=== PATIENT | male | born 2000 | race Caucasian/White ===

== ENCOUNTER 2022-10-14 06:13 | Emergency (ER) | payer MEDICAID, SELFPAY ==
[2022-10-14 06:15] VITALS: BP 142/91; PULSE 98; RESP 18; TEMP 36.4; O2SAT 98; BMI 19.8
--- NOTE | 2022-10-14 06:15 | W.ED.SEIZURE ---
HPI - Seizure General: Chief Complaint: Seizure Stated Complaint: seizure like activity Time Seen by Provider: 10/14/22 06:14 History of Present Illness: HPI Narrative: 22-year-old patient presented to the emergency department for evaluation of seizure. Reports being in bed and feeling like a seizure was can happen and then waking up in the ambulance. No tongue biting but did have loss of urinary continence. Possible triggers including drug use and not taking antiepileptic medications. Has had increase in headaches with history of brain AVM treated with radiotherapy. Also notes generalized malaise. Slowly returning to baseline. Still feels generally unwell. No other specific changes in health, exacerbating, or alleviating factors identified. Seizure History: Yes Place: Home Possible Precipitating Event: drug use and medication (no taking) Review of Systems General: Reports: 10 or more systems reviewed and unremarkable except in HPI and below PFSH ED PFSH: Medical History (Updated 10/22/22 @ 00:01 by MARIO Cristina) History of arteriovenous malformation (AVM) Seizures Surgical History (Updated 10/14/22 @ 06:37 by Josiah Neff MD) History of brain surgery Physical Exam Const: COMMON NORMALS: patient oriented x3 and alert GENERAL APPEARANCE: cooperative and well developed HENMT: COMMON NORMALS: normocephalic and atraumatic HEAD & SCALP: normocephalic and atraumatic Eye: COMMON NORMALS: conjunctivae normal CONJUNCTIVA: Yes conjunctivae normal SCLERA: sclerae normal Neck/C-Spine: COMMON NORMALS: supple GENERAL: Yes trachea midline Resp: COMMON NORMALS: normal respiratory effort and clear to auscultation bilaterally EFFORT & INSPECTION: Yes able to speak in complete sentences AUSCULTATION: clear to auscultation bilaterally Cardio: COMMON NORMALS: regular rate and regular rhythm RATE: regular rate RHYTHM: regular rhythm GI: COMMON NORMALS: Soft to palpation PALPATION: Yes Soft to palpation and No Tenderness to palpation present (GI) Extremity: GENERAL: Yes normal exam except as noted and No edema Neuro: COMMON NORMALS: patient oriented x3, CN's II-XII intact bilaterally, moves all extremities, no focal motor deficits and no sensory deficits noted SENSORIUM/ORIENTATION: Yes alert and No Orientation impaired Psych: COMMON NORMALS: mental status grossly normal and Normal thought process present THOUGHT PROCESS: Normal thought process present Course Vital Signs: Vital signs: Vital Signs Temperature 97.6 F 08/02/23 06:15 Pulse Rate 69 10/14/22 08:18 Respiratory Rate 19 H 10/14/22 07:36 Blood Pressure 121/68 10/14/22 08:18 Pulse Oximetry 99 10/14/22 08:18 Oxygen Delivery Me thod Room Air 10/14/22 07:36 MDM - Seizure MDM Narrative Medical decision making narrative: 22-year-old male with history of seizures presenting with seizure activity in the context of not taking medications and drug use. Fatigued appearing on exam however nontoxic. No focal neurologic deficits. No meningismus. EKG demonstrates sinus rhythm with normal axis and intervals, nonspecific ST segment abnormalities, no STEMI. Labs with hemoconcentration and metabolic derangement which is mild and consistent with reported history. Possible UTI. Head CT negative for acute pathology. Incidental findings noted. Patient improved with ED treatment of IV fluids, also given ceftriaxone, antiemetic, Trileptal dose. Patient is on his way back home and will be able to get his medications for the rest of today and subsequently. He feels significantly improved and feels back to baseline. Standard seizure precautions reinforced. The results of ED evaluation were discussed with the patient including prescriptions and/or symptomatic cares (if applicable) including appropriate and responsible use, followup plan, and return precautions. The patient verbalized understanding and felt safe for discharge. Medical Records Attestation: I reviewed the patient's medical records. Lab Data Attestation: I reviewed the patient's lab results. 10/14/22 Unknown 10/14/22 Unknown Labs: Radiology Impressions Head CT 10/14/22 06:30 IMPRESSION: 1. No acute intracranial hemorrhage or mass effect. 2. No definite acute infarct by CT, see above. 3. Other findings discussed above. Laboratory Results WBC 8.1 10^3/uL (4.5-13.0) 10/14/22 Unknown RBC 5.99 10^6/uL (4.1-5.3) H 10/14/22 Unknown Hgb 18.3 g/dL (11.7-16.6) H 10/14/22 Unknown Hct 56.0 % (42.0-52.0) H 10/14/22 Unknown MCV 93.5 fl (80-94) 10/14/22 Unknown MCH 30.6 pg (28.0-34.0) 10/14/22 Unknown MCHC 32.7 g/dL (30.0-36.0) 10/14/22 Unknown RDW 12.2 % (12.1-15.1) 10/14/22 Unknown Plt Count 279 10^3/cmm (130-400) 10/14/22 Unknown MPV 10.0 fL (7.4-10.4) 10/14/22 Unknown Neut % (Auto) 57.3 % 10/14/22 Unknown Lymph % (Auto) 30.8 % 10/14/22 Unknown [place] % (Auto) 9.3 % 10/14/22 Unknown Eos % (Auto) 1.7 % 10/14/22 Unknown Baso % (Auto) 0.5 % 10/14/22 Unknown Neut # (Auto) 4.66 10^3/uL (1.8-8.0) 10/14/22 Unknown Lymph # (Auto) 2.5 10^3/uL (1.5-6.5) 10/14/22 Unknown [place] # (Auto) 0.8 10^3/uL (0.2-0.9) 10/14/22 Unknown Eos # (Auto) 0.1 10^3/uL (0.0-0.8) 10/14/22 Unknown Baso # (Auto) 0.0 10^3/uL (0.0-0.1) 10/14/22 Unknown Nucleated RBC % (auto) 0 % 10/14/22 Unknown Nucleated RBCs # 0.0 /100WBC 10/14/22 Unknown Sodium 138 mmol/L (136-145) 10/14/22 Unknown Potassium 4.1 mmol/L (3.5-5.1) 10/14/22 Unknown Chloride 97 mmol/L (98-107) L 10/14/22 Unknown Carbon Dioxide 17 mmol/L (22-29) L 10/14/22 Unknown Anion Gap 28.1 (5-19) H 10/14/22 Unknown BUN 13 mg/dL (6-20) 10/14/22 Unknown Creatinine 1.2 mg/dL (0.7-1.2) 10/14/22 Unknown GFR Calculation 77.2 mL/min (90-130) L 10/14/22 Unknown Glucose 121 mg/dL (65-115) H 10/14/22 Unknown Calculated Osmolality 287 mOsm/kg (285-295) 10/14/22 Unknown Calcium 10.6 mg/dL (8.5-10.5) H 10/14/22 Unknown Total Bilirubin 1.6 mg/dL (0.15-1.2) H 10/14/22 Unknown AST 12 U/L (0-40) 10/14/22 Unknown ALT 13 U/L (0-41) 10/14/22 Unknown Alkaline Phosphatase 120 U/L (40-130) 10/14/22 Unknown Total Protein 8.7 g/dL (6.6-8.7) 10/14/22 Unknown Albumin 5.4 g/dL (3.5-5.2) H 10/14/22 Unknown Globulin 3.3 g/dL (1.3-4.6) 10/14/22 Unknown Urine Color Yellow (Yellow) 10/14/22 06:43 Urine Appearance Clear (CLEAR) 10/14/22 06:43 Urine pH 5 (5-7) 10/14/22 06:43 Ur Specific [place] 1.025 (1.005-1.030) 10/14/22 06:43 Urine Protein 1+ (Negative) H 10/14/22 06:43 Urine Glucose (UA) Norm (Normal) 10/14/22 06:43 Urine Ketones 1+ (Negative) H 10/14/22 06:43 Urine Blood 2+ (Negative) H 10/14/22 06:43 Urine Nitrate Negative (Negative) 10/14/22 06:43 Urine Bilirubin Neg (Negative) 10/14/22 06:43 Urine Urobilinogen 1 mg/dL (Negative) H 10/14/22 06:43 Ur Leukocyte Esterase Trace (Negative) H 10/14/22 06:43 Urine RBC 5-10 /hpf (0-2) H 10/14/22 06:43 Urine WBC 10-15 /hpf (0-5) H 10/14/22 06:43 Ur Squamous Epith Cells 0-4 /hpf (0-5) H 10/14/22 06:43 Amorphous Sediment Not Reportable 10/14/22 06:43 Urine Bacteria Trace /hpf (NONE) 10/14/22 06:43 Hyaline Casts 0-4 /lpf H 10/14/22 06:43 Urine Mucus 3+ /hpf 08/02/23 06:43 Urine Sperm 1+ /hpf 10/14/22 06:43 Discharge Plan Discharge Patient Disposition: Home Clinical Impression: Seizures, UTI (urinary tract infection) Condition: Stable Prescriptions: No Action oxcarbazepine 600 mg tablet 600 mg PO TID Discharge Orders: Discharge ED (Routine); Ordered 10/14/22 Ordered By: Josiah Neff Referrals: Aurea Campo APN [Primary Care Provider] - Discharge Diet: Usual diet Discharge Activity: Limit activity as instructed Patient Instructions: Urinary Tract Infection in Men (ED), Recurrent Seizures in Adults (ED) Activity Restrictions/Additional Instructions: Thank you for visiting the emergency department. You were seen and evaluated for seizure. The most likely cause of your seizure is related to medication noncompliance and substance abuse. I recommend resuming your medication regimen and follow-up with neurology. Please avoid abusing drugs, failure to stop abusing drugs may lead to or worse. Please ensure that you are staying hydrated. Please follow all typical seizure precautions including no driving, no operating machinery, do not cook over open flames or take baths and bath tubs, no swimming, do not climb tall objects, do not perform tasks that would be hazardous if you were to have recurrent seizure. You also were noted to have urinary tract infection which will be treated with antibiotics. As discussed you have sperm in your urine. There are a wide variety of causes of this however if this persists with repeat urinalysis with microscopy you should be referred to to a urologist for further evaluation. Return to the emergency department for anything that you are concerned about and feel needs emergency department evaluation. Coding Level of Care Code ED [employer] for Becca Huitron
--- NOTE | 2022-10-14 06:30 | CTR_ITS ---
PROCEDURE INFORMATION: Exam: CT Head Without Contrast Exam date and time: 10/14/2022 7:03 AM Age: 22 years old Clinical indication: Condition or disease; Convulsions or seizures; Additional info: Seizure, HX avm sp radiation TECHNIQUE: Imaging protocol: Computed tomography of the head without contrast. Radiation optimization: All CT scans at this facility use at least one of these dose optimization techniques: automated exposure control; mA and/or kV adjustment per patient size (includes targeted exams where dose is matched to clinical indication); or iterative reconstruction. REPORTING DATA: Count of CT and Cardiac NM exams in prior 12 months: This patient has received 0 known CTs and 0 known cardiac nuclear medicine studies in the 12 months prior to the current study. COMPARISON: No relevant prior studies available. RADIATION DOSE METRICS: Total DLP (mGy-cm): 1005.83 FINDINGS: Brain: No acute intracranial hemorrhage or mass effect. No definite acute infarct by CT. MRI would be more sensitive/specific for detection, as clinically directed. Cerebral ventricles: Ventricle size is normal for age. Paranasal sinuses: Included paranasal sinuses are essentially clear. Mastoid air cells: No significant acute finding. Bones/joints: No definite acute skull fracture. Soft tissues: No significant acute finding. CT/CT head wo con* [id number] IMPRESSION: 1. No acute intracranial hemorrhage or mass effect. 2. No definite acute infarct by CT, see above. 3. Other findings discussed above.
[2022-10-14 06:54] LABS: Basophils % 0.5 %; Eosinophils # 0.1 10^3/uL (0.0-0.8); Eosinophils % 1.7 %; Hemoglobin 18.3 g/dL (11.7-16.6); Lymphocytes # 2.5 10^3/uL (1.5-6.5); Lymphocytes % 30.8 %; Mean Corpuscular HGB Conc 32.7 g/dL (30.0-36.0); Mean Corpuscular Hemoglobin 30.6 pg (28.0-34.0); Mean Corpuscular Volume 93.5 fl (80-94); Monocytes # 0.8 10^3/uL (0.2-0.9); Monocytes % 9.3 %; Neutrophils # 4.66 10^3/uL (1.8-8.0); Neutrophils % 57.3 %; Nucleated Red Blood Cells % 0 %; Platelet Count 279 10^3/cmm (130-400); Red Blood Count 5.99 10^6/uL (4.1-5.3); Red Cell Distribution Width 12.2 % (12.1-15.1); White Blood Count 8.1 10^3/uL (4.5-13.0)
[2022-10-14 06:56] LABS: Alanine Aminotransferase 13 U/L (0-41); Albumin Level 5.4 g/dL (3.5-5.2); Alkaline Phosphatase 120 U/L (40-130); Anion Gap 28.1 (5-19); Aspartate Amino Transferase 12 U/L (0-40); Blood Urea Nitrogen 13 mg/dL (6-20); Calcium 10.6 mg/dL (8.5-10.5); Carbon Dioxide 17 mmol/L (22-29); Chloride 97 mmol/L (98-107); Globulin 3.3 g/dL (1.3-4.6); Glomerular Filtration Rate 77.2 mL/min (90-130); Glucose 121 mg/dL (65-115); Osmolality Calculated 287 mOsm/kg (285-295); Potassium 4.1 mmol/L (3.5-5.1); Sodium 138 mmol/L (136-145); Total Bilirubin 1.6 mg/dL (0.15-1.2); Total Protein 8.7 g/dL (6.6-8.7)
[2022-10-14] MEDS: ondansetron 2 mg/ML SDV 2 mL 4 MG IVP (06:57)
[2022-10-14 07:00] LABS: Add Urine Microscopic? YES; Bilirubin Urine Neg (Negative); Blood Urine 2+ (Negative); Glucose Urine UA Norm (Normal); Ketones Urine 1+ (Negative); Leukocyte Esterase Urine Trace (Negative); Nitrate Urine Negative (Negative); Protein Urine 1+ (Negative); Specific Gravity, Urine 1.025 (1.005-1.030); Urine Appearance Clear (CLEAR); Urine Color Yellow (Yellow); Urobilinogen Urine 1 mg/dL (Negative); pH Urine 5 (5-7)
[2022-10-14] MEDS: sodium chloride 0.9% 1,000 ML 999 ML IV (07:03)
[2022-10-14 07:07] LABS: Bacteria Urine TRACE /hpf; Hyaline Casts Urine 0-4 /lpf; Mucus Urine 3+ /hpf; Sperm Urine 1+ /hpf; Squamous Epithelial Cell Urine 0-4 /hpf (0-5)
[2022-10-14 07:09] LABS: Add Urine Culture? No
--- NOTE | 2022-10-14 07:10 | ECG_ITS ---
[facility] Test Date: 2022-10-14 Pat Name: Chuck Tapia Department: Room: Gender: Male Vertical Borer: : 2000 Requested By: Josiah Neff Order Number: [id number] Ching MD: Richard Freeman M.D. Measurements Intervals [place] Rate: 73 P: 65 AK: 165 QRS: 110 QRSD: 93 T: 60 QT: 379 QTc: 419 Interpretive Statements SINUS RHYTHM WITH SINUS ARRHYTHMIA LEFT POSTERIOR FASCICULAR BLOCK [QRS AXIS > 109, INFERIOR Q] NONSPECIFIC ST & T-WAVE ABNORMALITY No previous ECG available for comparison Electronically Signed On 10-14-2022 23:22:19 CDT by Richard Freeman M.D. [email or web address]
[2022-10-14 07:17] VITALS: BP 113/85; PULSE 78; RESP 18; O2SAT 99
--- NOTE | 2022-10-14 07:29 | PC.PHAR ---
pt states he takes care of his own medications-ext shows oxcarbazepine 600mg last filled 08/20/22 30d/s pts family states the pt had a build up-ext shows filled 900mg bid pt states he takes 600mg tid
[2022-10-14 07:36] VITALS: BP 112/74; PULSE 60; RESP 19; O2SAT 99
[2022-10-14] MEDS: OXcarbazepine 300 mg Tablet 600 MG PO (08:09)
[2022-10-14] MEDS: cefTRIAXone 500 MG in water for injection-sterile 1 ML IM (08:10)
[2022-10-14] MEDS: doxycycline 100 mg Tablet PO (08:10)
[2022-10-14 08:18] VITALS: BP 121/68; PULSE 69; O2SAT 99
== END 2022-10-14 08:20 | disposition home or self-care (01) ==
PROVIDERS: Emergency Provider Emergency Medicine; PCP Nurse Practitioner Family
DX: R56.9 Unspecified convulsions (principal); N39.0 Urinary tract infection, site not specified
CPT/HCPCS: 70450; 80053; 81001; 85025; 93005; 96361; 96372; 96374; 99285; J0696; J2405; J7030